=== PATIENT | female | born 1985 | race Caucasian/White ===

== ENCOUNTER 2018-04-23 13:44 | Inpatient (IN) | payer BC ==
[2018-04-23 14:21] LABS: ABS Basophils 0 10^3/ul (0-0.2); ABS Eosinophils 0.1 10^3/ul (0-0.6); ABS Lymphocytes 1.5 10^3/ul (1.0-4.8); ABS Neutrophils 9.1 10^3/ul (1.5-7.7); ABS Nucleated RBC 0 10^3/ul; Eosinophil % 0.7 % (0-6); Hematocrit 38 % (35-47); Lymphocyte % 12.6 % (25-47); Mean Corpuscular HGB Conc 34 g/dl (31-36); Mean Corpuscular Hemoglobin 29 pg (27-31); Mean Corpuscular Volume 86 fL (80-97); Mean Platelet Volume 9.2 um3 (7.4-10.4); Nucleated Red Blood Cells % 0.1; Platelet Count 181 10^3/ul (150-450); Red Blood Count 4.44 10^6/ul (4.00-5.40); Red Cell Distribution Width 14 % (10.5-15); White Blood Count 11.8 10^3/ul (3.5-10.8)
[2018-04-23] MEDS ORDERED: ceFOXitin 2 GM IVPREMIX* 2 GM/50 ML BAG IVPB ONE (15:33)
--- NOTE | 2018-04-23 15:43 | HP ---
General Information - Reason for Visit 32yo at 40+1 with HTN for most of , known white coat HTN. Elevated in office, but always normal at home. 24hr urine protein and labs were normal a few weeks ago. Pt had been declining delivery (C/S) because she was hoping to have a TOLAC. Sent from office today because BP was a little higher than baseline. - General Information Maternal Age: 32 Grav: 2 Para: 1 SAB: 0 IEA: 0 Estimated Due Date: 04/22/18 Determined By: Early Ultrasound Gestational Age in Weeks/Days: 40+1 Maternal Blood Type and Rh: O Positive - Results this Serology/RPR Result: Non-Reactive Rubella Result: Immune HBsAg Result: Negative HIV Result: Negative GBS Culture Result: Positive Past Medical History Delivery History: Hx C/Section Pertinent Past Medical History: See Records Pertinent Past Surgical History: See Records - Antepartal Records Antepartal Records: Reviewed, Complicated by: - HTN, prior C/S Review of Systems Constitutional: Comfortable CV Complaint: No Respiratory: Shortness of Breath: No Gastrointestinal: No Nausea/Vomiting, Normal Bowel Movement Genitourinary: No Bleeding, No Leaking Fluid Musculoskeletal: No Complaint Neurological: No Headache, No Visual Changes Exam Allergies/Adverse Reactions: Allergies amoxicillin Allergy (Verified 04/23/18 22:03) Rash And Itching Penicillins Allergy (Verified 04/23/18 22:03) Hives 158/100 on presentation, then decreased to 120s/80s Lab Values - Entire Visit: Laboratory Tests Laboratory Results - last 24 hr 04/23/18 04/23/18 04/23/18 14:00 14:00 16:00 WBC 11.8 H RBC 4.44 Hgb 13.0 Hct 38 MCV 86 MCH 29 MCHC 34 RDW 14 Plt Count 181 MPV 9.2 Neut % (Auto) 77.5 Lymph % (Auto) 12.6 L Woodruff % (Auto) 8.8 H Eos % (Auto) 0.7 Baso % (Auto) 0.4 Absolute Neuts (auto) 9.1 H Absolute Lymphs (auto) 1.5 Absolute Monos (auto) 1.0 H Absolute Eos (auto) 0.1 Absolute Basos (auto) 0 Absolute Nucleated RBC 0 Nucleated RBC % 0.1 Creatinine 0.61 Est GFR ( Amer) 139.3 Est GFR (Non-Af Amer) 115.2 Uric Acid 4.4 AST 19 ALT 15 Urine Color Straw Urine Appearance Clear Urine pH 6.0 Ur Specific Vanderbilt 1.010 Urine Protein Negative Urine Ketones Negative Urine Blood Negative Urine Nitrate Negative Urine Bilirubin Negative Urine Urobilinogen Negative Ur Leukocyte Esterase Negative Urine Glucose Negative Blood Type Antibody Screen 04/23/18 16:04 WBC RBC Hgb Hct MCV MCH MCHC RDW Plt Count MPV Neut % (Auto) Lymph % (Auto) Woodruff % (Auto) Eos % (Auto) Baso % (Auto) Absolute Neuts (auto) Absolute Lymphs (auto) Absolute Monos (auto) Absolute Eos (auto) Absolute Basos (auto) Absolute Nucleated RBC Nucleated RBC % Creatinine Est GFR ( Amer) Est GFR (Non-Af Amer) Uric Acid AST ALT Urine Color Urine Appearance Urine pH Ur Specific Vanderbilt Urine Protein Urine Ketones Urine Blood Urine Nitrate Urine Bilirubin Urine Urobilinogen Ur Leukocyte Esterase Urine Glucose Blood Type O Positive Antibody Screen Negative - Measurements Height: 5 ft 5 in Weight: 213 lb Weight in lbs: [phone] Body Mass Index (BMI): 35.4 Pre- Weight: 184 lb Weight Gained This : 29 lbs and 0 ozs - Exam Breast: Breast Exam Deferred CVA: No CVA Tenderness Heart: Normal Rhythm/Heart Sounds HEENT: No Significant Findings Lungs: Clear Bilaterally - Abdominal Exam Abdomen Exam: Non-Tender, Fundal Height Consistent with Dates - Ultrasound/Biophysical Profile Ultrasound Status: Not Done Targeted Exam Findings Cervical Exam: Fingertip - (exam in office) EFM Findings - External Monitor Findings Baseline Heart Rate: 140 External Monitor Findings: Accelerations Present, No Pattern of Variable or Late Decelerations, Variability Moderate Contractions: Irregular Assessment/Plan - Assessment 40+1 wks with white coat HTN which has been persistent. Labs normal today, but pt aware we recommend delivery no later than WEI with HTN. monitoring very reassuring. After discussion, pt wants to proceed to repeat C/S today. - Obstetrical Risk Factors Obstetrical Risk Factors: Post-Dates, Chronic Hypertension - Plan Plan: C/S Delivery - Plan for delivery when pt has been 6+ hrs NPO, last ate at 1100. Reviewed risks, benefits of repeat C/S including bleeding, infection, transfusion, organ injury, hysterectomy, and even . Consent signed. - Date/Time of Admission Date of Admission: 04/23/18 Time of Admission: 15:00
[2018-04-23 16:23] LABS: Urine Appearance Clear; Urine Blood Negative (Negative); Urine Color Straw; Urine Ketones Negative (Negative); Urine Protein Negative (Negative); Urine Urobilinogen Negative (Negative)
[2018-04-23] MEDS ORDERED: Morphine PF AMP (0.5MG/ML)* 5 MG/10 ML AMP ONE (19:56)
[2018-04-23 20:10] LABS: EGFR Non-African American 115.2 (>60); Uric Acid 4.4 mg/dL (2.3-6.6)
[2018-04-23] MEDS ORDERED: OXYTOCIN* 10 UNITS/ML 1 ML VIAL ONE (20:21)
[2018-04-23] MEDS ORDERED: Nalbuphine* 10 MG/ML 1 ML VIAL IV PRN (21:05)
[2018-04-23] MEDS ORDERED: Ondansetron INJ* 2 MG/ML VIAL IV PRN (21:05)
[2018-04-23] MEDS ORDERED: Naloxone* 0.4 MG/ML 1 ML VIAL IV PRN ×2 (21:05)
[2018-04-23] MEDS ORDERED: Witch Hazel PAD* JAR TOPICAL PRN (21:45)
[2018-04-23] MEDS ORDERED: Acetaminophen TAB* 325 MG PO PRN (21:45)
[2018-04-23] MEDS: Ibuprofen TAB* 400 MG PO SCH (22:10)
[2018-04-23] MEDS: oxyCODONE/Acetamin 5/325 MG* TAB PO PRN (23:11)
--- NOTE | 2018-04-24 02:44 | OP ---
DATE OF OPERATION: 04/23/18 - ROOM #111 DATE OF : 89 SURGEON: Bessie Crocker MD DIRECTOR OF PROCUREMENT: HAJA Dasilva ANESTHESIOLOGIST: Dr. Driver. ANESTHESIA: Spinal. PRE-OP DIAGNOSIS: A 40 plus 1 week gestation with history of previous section with persistent chronic hypertension. POST-OP DIAGNOSIS: A 40 plus 1 week gestation with history of previous section with persistent chronic hypertension. OPERATIVE PROCEDURE: Repeat low transverse section with vacuum assist. ESTIMATED BLOOD LOSS: 800 cc. URINE OUTPUT: 200 cc. IV FLUIDS: 1300 cc lactated Ringer's. MATERIAL TO LAB: Cord blood. INDICATIONS: This patient is a 32-year-old 2, para 1 sent from the office today with a slightly increased blood pressure over her baseline. The patient had a known history of self-reported white coat hypertension, so nearly all of her blood pressures in the office during her were mildly elevated but they would be completely normal at home. The patient had done a 24 -hour urine protein and blood testing a few weeks ago, and all of her labs were completely normal. The patient had been advised that the recommendation was to have delivery by 39 weeks with her hypertension; however, she declined because she strongly desired to attempt a trial of labor after . Today, the patient's blood pressure was a little bit higher and cervix was still not favorable. After discussion, the patient decided to proceed with the repeat section today. She was extensively counseled for the procedure and consent was signed. FINDINGS: Fairly significant adhesions in the anterior abdominal wall between the rectus muscles and low near the bladder. Otherwise, uterus, fallopian tubes and ovaries were normal. Delivery is productive of a male infant weighing 7 pounds 14 ounces with Apgars of 9 and 9. Time of delivery was 2042. COMPLICATIONS: None. DESCRIPTION OF PROCEDURE: The risks, benefits, and alternatives were described to the patient, and informed consent was obtained. The patient was taken to the operating room with IV running, where spinal anesthesia was induced and found to be adequate. The patient was prepped and draped in normal sterile fashion in the dorsal supine position with a leftward tilt. A Pfannenstiel skin incision was made with a scalpel through the patient's previous incision. This was carried down to the underlying fascia using the scalpel. The fascia was scored in the midline, and the incision was extended using Longoria scissors. The fascia was dissected off the underlying rectus muscles using blunt and sharp dissection. The rectus muscles were in the midline using dissection with a Trang clamp. The peritoneum was then entered bluntly. A bladder blade was placed. A bladder flap was created sharply using Metzenbaum scissors. A low transverse uterine incision was then made with the scalpel. This was carried down to the amniotic membranes. The membranes were then ruptured, productive of clear fluid. The uterine incision was extended using blunt traction. The head was elevated to the level of the incision, and, with fundal pressure, the head delivered without difficulty. The shoulders then were also both delivered and the body followed. The had excellent tone and cried immediately on delivery. The cord was doubly clamped and cut. The infant was then handed to the awaiting substation inspector. Cord blood was collected. The placenta was delivered with manual extraction. The uterus was then exteriorized and cleared of all clots and debris. The uterine incision was then reapproximated using 0 Polysorb in a running-locked fashion. A second layer of imbricating 0 Polysorb sutures was then also placed for good hemostasis. The posterior cul-de-sac was irrigated with saline. The uterus was then returned to the abdomen. The incision was reinspected and still noted to be hemostatic. The peritoneum was closed with 2-0 chromic in a running fashion. The fascia was closed with 0 Polysorb in a running fashion. The subcutaneous tissues were copiously irrigated and made hemostatic using the Bovie. The subcutaneous tissues were then reapproximated using 2-0 chromic in interrupted sutures. The skin was then closed with . A sterile bandage was then placed over the incision. The patient tolerated the procedure well. Sponge, lap, and needle counts were correct x2. [id number] #: [id number] [facility]ITALChikis
[2018-04-24] MEDS: Ibuprofen TAB* 400 MG PO SCH ×2 (04:08→10:26)
[2018-04-24 07:08] LABS: ABS Basophils 0 10^3/ul (0-0.2); ABS Eosinophils 0.1 10^3/ul (0-0.6); ABS Lymphocytes 1.4 10^3/ul (1.0-4.8); ABS Monocytes 1.1 10^3/ul (0-0.8); ABS Neutrophils 11.9 10^3/ul (1.5-7.7); ABS Nucleated RBC 0 10^3/ul; Eosinophil % 0.5 % (0-6); Hematocrit 37 % (35-47); Hemoglobin 12.7 g/dl (12.0-16.0); Lymphocyte % 9.4 % (25-47); Mean Corpuscular HGB Conc 34 g/dl (31-36); Mean Corpuscular Hemoglobin 29 pg (27-31); Mean Corpuscular Volume 86 fL (80-97); Mean Platelet Volume 9.2 um3 (7.4-10.4); Nucleated Red Blood Cells % 0; Platelet Count 143 10^3/ul (150-450); Red Blood Count 4.31 10^6/ul (4.00-5.40); Red Cell Distribution Width 14 % (10.5-15); White Blood Count 14.5 10^3/ul (3.5-10.8)
[2018-04-24] MEDS: oxyCODONE/Acetamin 5/325 MG* TAB PO PRN ×4 (07:29→20:24)
[2018-04-24] MEDS: Docusate CAP* 100 MG PO SCH ×3 (07:45→20:24)
[2018-04-24] MEDS: Simethicone TAB* 80 MG TAB.CHEW PO SCH ×3 (08:43→18:31)
[2018-04-24] MEDS ORDERED: Ferrous Gluconate TAB* 324 MG TAB PO SCH (09:00)
[2018-04-24] MEDS ORDERED: oxyCODONE/Acetamin 5/325 MG* TAB PO PRN (12:10)
[2018-04-24] MEDS: Ibuprofen TAB* 600 MG PO SCH (18:30)
[2018-04-25] MEDS: Ibuprofen TAB* 600 MG PO SCH ×4 (00:37→21:13)
[2018-04-25] MEDS: Simethicone TAB* 80 MG TAB.CHEW PO SCH ×5 (00:37→21:13)
[2018-04-25] MEDS: Docusate CAP* 100 MG PO SCH ×3 (08:49→21:13)
[2018-04-25] MEDS: Labetalol TAB* 100 MG PO SCH ×2 (10:16→21:15)
[2018-04-25] MEDS: oxyCODONE/Acetamin 5/325 MG* TAB PO PRN (13:57)
[2018-04-25 20:33] VITALS: BP 139/92
[2018-04-26] MEDS: Ibuprofen TAB* 600 MG PO SCH ×2 (05:04→10:50)
[2018-04-26] MEDS: Docusate CAP* 100 MG PO SCH (08:53)
[2018-04-26] MEDS: Simethicone TAB* 80 MG TAB.CHEW PO SCH (08:53)
[2018-04-26] MEDS: Labetalol TAB* 100 MG PO SCH (08:53)
== END 2018-04-26 10:55 | disposition home or self-care (01) | DRG 540 ==
LOC: MCHOBOUT 13:44 → MCHOB 15:27
PROVIDERS: ADMIT Obstetrics & Gynecology; ATTEND Obstetrics & Gynecology
PROC: 10907ZC Drainage of Amniotic Fluid, Therapeutic from Products of Conception, Via Natural or Artificial Opening (ICD-10-PCS; 2018-04-23)
PROC: 10D00Z1 Extraction of Products of Conception, Low, Open Approach (ICD-10-PCS; principal; 2018-04-23 19:57)
DX: O34.211 Maternal care for low transverse scar from previous cesarean delivery (principal); O10.92 Unspecified pre-existing hypertension complicating childbirth; O99.824 Streptococcus B carrier state complicating childbirth; O48.0 Post-term pregnancy; Z3A.40 40 weeks gestation of pregnancy; Z37.0 Single live birth
CPT/HCPCS: 36415; 81003; 82565; 84450; 84460; 84550; 85025; 86850; 86900; 86901; 90686; A9270-GY; J0694; J2405; J2590